=== PATIENT | female | born 1935 | race Caucasian/White ===

== ENCOUNTER → 2016-07-15 | Outpatient (CLI) | payer MEDICARE, OTHER ==
[~2016-07-15] MED LIST: ADVAIR 250/28 DISKU1 IH; ASPIRIN E.C. 8181 MG PO; BENADRYL25 M2 PO; BREATHING TREATMENTS; DULERA1 ARO IH; EYE DROP ADVANC15 ML OP; FERROUS SU325 MG/TAB PO; FLOVENT DI50 MCG/Act IH; FOLIC ACID0.4 MG PO; HYGROTON25 MG PO; IBUPROFEN200 M1 PO; MASON NATURAL2000 IU PO; NORCO 325 MG-51 TAB PO; NORVASC 5MG5 MG/TAB PO; OMNIPRED 10 ML10 ML OU; PRILOSEC OTC20 MG PO; PRINIVIL20 MG PO; SINGULAIR 110 MG/TAB PO; TUMS ULTRA ST1000 MG PO; TYLENOL 8 HR PO; VITAMIN C BUFF500 MG PO
== END ==
LOC: MC.RAD 14:41
DX: Z12.31 Encounter for screening mammogram for malignant neoplasm of breast (principal)

== ENCOUNTER 2017-02-11 14:43 | Outpatient (CLI) | payer MEDICARE, OTHER ==
[~2017-02-11] VITALS: Ht 175.3 cm; Wt 103.1 kg
[~2017-02-11 14:43] MED LIST changes: -ASPIRIN E.C. 8181 MG PO; -BENADRYL25 M2 PO; -DULERA1 ARO IH; -EYE DROP ADVANC15 ML OP; -FLOVENT DI50 MCG/Act IH; -MASON NATURAL2000 IU PO; -OMNIPRED 10 ML10 ML OU; -TUMS ULTRA ST1000 MG PO; -TYLENOL 8 HR PO
[2017-02-11] MEDS ORDERED: NORVASC 5MG5 MG/TAB PO (15:27)
[2017-02-11] MEDS ORDERED: DULERA1 ARO IH (15:28)
[2017-02-11] MEDS ORDERED: OMNIPRED 10 ML10 ML OU (15:30)
[2017-02-11] MEDS ORDERED: FLOVENT DI50 MCG/Act IH (15:31)
[2017-02-11] MEDS ORDERED: MASON NATURAL2000 IU PO (15:32)
[2017-02-11] MEDS ORDERED: TUMS ULTRA ST1000 MG PO (15:33)
[2017-02-11] MEDS ORDERED: EYE DROP ADVANC15 ML OP (15:34)
[2017-02-11] MEDS ORDERED: TYLENOL 8 HR PO (15:41)
[2017-02-11] MEDS ORDERED: ASPIRIN E.C. 8181 MG PO (15:42)
[2017-02-11] MEDS ORDERED: BENADRYL25 M2 PO (15:44)
[2017-02-11 15:49] VITALS: BP 117/66; PULSE 63; TEMP 97.4
== END 2017-02-11 17:00 | disposition home or self-care (01) ==
LOC: EUO 14:43
DX: M81.0 Age-related osteoporosis without current pathological fracture (principal)
CPT/HCPCS: J3489

== ENCOUNTER → 2017-07-16 | Outpatient (CLI) | payer MEDICARE, OTHER ==
[~2017-07-16] MED LIST changes: +ASPIRIN E.C. 8181 MG PO; +BENADRYL25 M2 PO; +DULERA1 ARO IH; +EYE DROP ADVANC15 ML OP; +FLOVENT DI50 MCG/Act IH; +MASON NATURAL2000 IU PO; +OMNIPRED 10 ML10 ML OU; +TUMS ULTRA ST1000 MG PO; +TYLENOL 8 HR PO
== END ==
LOC: MC.RAD 14:04
DX: Z12.31 Encounter for screening mammogram for malignant neoplasm of breast (principal)

== ENCOUNTER → 2018-07-23 | Outpatient (CLI) | payer MEDICARE, OTHER ==
[~2018-07-23] MED LIST changes: +PROVENTIL0.09 MG/A1 IH
== END ==
LOC: MC.RAD 13:34
DX: Z12.31 Encounter for screening mammogram for malignant neoplasm of breast (principal)

== ENCOUNTER → 2018-11-26 | Outpatient (CLI) | payer MEDICARE, OTHER | LOC: COL.VAS 09:33 | DX: I35.8 Other nonrheumatic aortic valve disorders (principal); R05 Cough; Z68.34 Body mass index [BMI] 34.0-34.9, adult ==

== ENCOUNTER 2019-03-08 13:38 | Outpatient (CLI) | payer MEDICARE, OTHER ==
[~2019-03-08] VITALS: Ht 175.3 cm; Wt 101.9 kg
[2019-03-08 14:30] VITALS: BP 122/77; PULSE 70; TEMP 97.9
== END 2019-03-08 14:35 | disposition home or self-care (01) ==
LOC: EUO 13:38
DX: M81.0 Age-related osteoporosis without current pathological fracture (principal)
CPT/HCPCS: J3489

== ENCOUNTER → 2019-08-02 | Outpatient (CLI) | payer MEDICARE, OTHER | LOC: MC.RAD 13:23 | DX: Z12.31 Encounter for screening mammogram for malignant neoplasm of breast (principal) ==

== ENCOUNTER 2020-03-21 15:12 | Outpatient (CLI) | payer MEDICARE, OTHER ==
[~2020-03-21] VITALS: Ht 175.3 cm; Wt 101.8 kg
[2020-03-21] MEDS ORDERED: TRELEGY ELLIPT1 EACH IH (19:12)
[2020-03-21] MEDS ORDERED: PROTONIX 40MG T40 MG PO (19:13)
[2020-03-21] MEDS ORDERED: HYGROTON 2525 MG/TAB PO (19:13)
[2020-03-21] MEDS ORDERED: PREDFORTE15ML OU (19:14)
== END 2020-03-21 19:14 | disposition home or self-care (01) ==
LOC: EUO 15:12
DX: M81.0 Age-related osteoporosis without current pathological fracture (principal)
CPT/HCPCS: J3489

== ENCOUNTER → 2020-08-17 | Outpatient (CLI) | payer MEDICARE, OTHER ==
[~2020-08-17] MED LIST changes: +DIPROLENE AF GEL15GM TP; +HYGROTON 2525 MG/TAB PO; +IPRATROPIUM BROM3 M1 IH; +PREDFORTE15ML OU; +PROTONIX 40MG T40 MG PO; +RECLAST5 MG/100 M IV; +TRELEGY ELLIPT1 EACH IH
== END ==
LOC: MC.RAD 08-03 13:00
DX: Z12.31 Encounter for screening mammogram for malignant neoplasm of breast (principal)

== ENCOUNTER → 2020-08-18 | Outpatient (CLI) | payer MEDICARE, OTHER | LOC: COL.VAS 08-08 12:30 | DX: I51.7 Cardiomegaly (principal) ==

== ENCOUNTER 2021-03-26 14:10 | Outpatient (CLI) | payer MEDICARE, OTHER ==
[~2021-03-26 14:10] MED LIST changes: -DIPROLENE AF GEL15GM TP; -IPRATROPIUM BROM3 M1 IH; -RECLAST5 MG/100 M IV
[2021-03-26 14:33] VITALS: BP 119/77; PULSE 85; TEMP 98.7
[2021-03-26] MEDS ORDERED: RECLAST5 MG/100 M IV (15:21)
[2021-03-26] MEDS ORDERED: DIPROLENE AF GEL15GM TP (15:32)
[2021-03-26] MEDS ORDERED: BENADRYL25 M2 PO (15:33)
[2021-03-26] MEDS ORDERED: IPRATROPIUM BROM3 M1 IH (15:33)
== END 2021-03-26 15:35 | disposition home or self-care (01) ==
LOC: EUO 14:10
DX: M81.0 Age-related osteoporosis without current pathological fracture (principal)
CPT/HCPCS: J3489

== ENCOUNTER → 2021-09-06 | Outpatient (CLI) | payer MEDICARE, OTHER ==
[~2021-09-06] MED LIST changes: +DIPROLENE AF GEL15GM TP; +IPRATROPIUM BROM3 M1 IH; +RECLAST5 MG/100 M IV
== END ==
LOC: MC.RAD 13:26
DX: Z12.31 Encounter for screening mammogram for malignant neoplasm of breast (principal)

== ENCOUNTER → 2022-04-25 | Outpatient (CLI) | payer MEDICARE, OTHER ==
[~2022-04-25] MED LIST changes: +ASPIRIN 81M81 MG/TA2 PO; +K-DUR20 MEQ PO; +LIPITOR 80MG80 MG PO; +MAG-OX 400400 MG/TAB PO; +PRESERVISION1 SGL PO
== END ==
LOC: COL.RAD 10:37
DX: Z01.818 Encounter for other preprocedural examination (principal); I71.21 Aneurysm of the ascending aorta, without rupture; J44.9 Chronic obstructive pulmonary disease, unspecified; G45.9 Transient cerebral ischemic attack, unspecified; I65.22 Occlusion and stenosis of left carotid artery
CPT/HCPCS: Q9967

== ENCOUNTER 2024-03-31 06:54 | Day surgery (SDC) | payer MEDICARE, OTHER ==
[~2024-03-31 06:54] MED LIST changes: +CEPHALEXIN500 M1 PO; +ELIQUIS 5MG PO; +FLONASEALLERGY NS; +LR 1,000 ML IV SCH; +MULTAQ400 MG PO; +TOPROL XL 50MG50 MG PO
[2024-03-31] MEDS ORDERED: LR 1,000 ML IV SCH (08:00)
[2024-03-31] MEDS ORDERED: ELIQUIS 5MG PO (08:03)
[2024-03-31] MEDS ORDERED: MULTAQ400 MG PO (08:03)
[2024-03-31] MEDS ORDERED: MAG-OX 400400 MG/TAB PO (08:04)
[2024-03-31] MEDS ORDERED: LIPITOR 80MG80 MG PO (08:04)
[2024-03-31] MEDS ORDERED: STOOL SOFTENER100 M2 PO (08:05)
[2024-03-31] MEDS ORDERED: PROAIR HFA0.09 MG/AC IH (08:06)
[2024-03-31] MEDS ORDERED: [UNRECOGNIZED DRUG - OTHER] PO (08:11)
[2024-03-31] MEDS ORDERED: PREDFORTE5ML OU (08:13)
[2024-03-31] MEDS ORDERED: ATROVENT I0.2 MG/1 M IH (08:17)
[2024-03-31] MEDS ORDERED: PRESERVISION A1 EAC3 PO (08:18)
[2024-03-31] MEDS ORDERED: BENADRYL25 M2 PO (08:18)
[2024-03-31] MEDS ORDERED: ADVIL200 MG PO (08:19)
--- NOTE | 2024-03-31 08:48 | NUR ---
0830: PROCEDURE CANCELLED DUE TO PT TAKING ELIQUIS. IV DC'D AT THIS TIME. PT INFORMED THAT DR. EMERSON'S OFFICE WILL BE IN CONTACT TO RESCHEDULE. 0840: OFF UNIT VIA WHEELCHAIR WITH AT THIS TIME.
== END 2024-03-31 08:40 | disposition home or self-care (01) ==
LOC: SDCO 06:54
DX: R06.02 Shortness of breath (principal); R05.9 Cough, unspecified; K44.9 Diaphragmatic hernia without obstruction or gangrene; Z79.82 Long term (current) use of aspirin; Z79.01 Long term (current) use of anticoagulants; Z87.891 Personal history of nicotine dependence; Z53.8 Procedure and treatment not carried out for other reasons
CPT/HCPCS: J7120